=== PATIENT | female | born 1965 | race Caucasian/White ===

== ENCOUNTER → 2016-12-11 | Outpatient (CLI) | payer BC ==
--- NOTE | ~2016-12-11 | MR32 ---
[facility] A Service of [facility] & [facility] RADIOLOGY TEXT RESULTS PATIENT: SKIP WREN LOCATION: [facility] : 65 UNIT #: [id number] AGE: [address]: ROBERTO SAMPSON SEX: F ORDER DR: [id number] [address] [id number] O MR#: [id number] Acc #: [id number] NAME: SKIP WREN : 1965 SEX: F STUDY DATE/TIME: 12/11/2016 12:44 UNIT: [facility] ROOM: STUDY DESCRIPTION: MR Cervical Wo Contrast Attending Physician: Roberto Sampson Aprn Referring Physician: Roberto Sampson Aprn Ordering Physician: Roberto Sampson Aprn Primary Care Physician: Elaine Bailey M.D. MRI CENTER REPORT This report is preliminary unless electronic signature is present. EXAM MRI of the cervical spine without contrast. HISTORY Neck pain for 2 years pain radiates to right side right upper extremity, down right arm. No known trauma. No cancer history. TECHNIQUE MRI of the cervical spine was performed without contrast using routine 1.5T imaging technique. FINDINGS There is mild reversal of cervical lordosis centered at C5-6 with intervertebral disc desiccation most apparent C5-6 and C6-7 where there is moderate loss of intervertebral disc height and endplate spondylosis. Mild marrow endplate degenerative changes noted but otherwise marrow signal intensities unremarkable. Cervical cord is normal in size and signal intensity. There is no Chiari-I malformation. At C2-3, mild facet degenerative change, otherwise, no significant abnormality. C3-4 mild facet degenerative change. No significant abnormality otherwise. At C4-5, mild facet degenerative change bilaterally but no significant canal or foraminal impingement. At C5-6, there is concentric disc osteophyte complex with a superimposed central disc protrusion/extrusion remaining contiguous with the disc extending above and below the level of the disc. This results in mild cord flattening and canal stenosis. There is also mild facet degenerative change bilaterally with uncovertebral osteophyte formation, and there is mild left and moderate right-side foraminal narrowing. [facility] A Service of [facility] & [facility] RADIOLOGY TEXT RESULTS PATIENT: SKIP WREN LOCATION: [facility] : 65 UNIT #: [id number] AGE: [address]: ROBERTO SAMPSON SEX: F ORDER DR: At C6-7, moderate concentric disc osteophyte complex asymmetrically worse right xblesofcor-xb-jeapriqywuixez location. There is zoeb-pi-bgldlorb right-sided cord flattening and canal stenosis and severe impingement upon the right 6-7 foraminal entry zone, to a lesser extent of the foramen itself. There is also leftward uncovertebral osteophyte formation and chjojjks-ld-vsfaea left-sided foraminal impingement. There is mild bilateral facet degenerative change. At C7-T1, mild right, moderate left-side facet degenerative change with moderate left and mild right foraminal narrowing but no canal stenosis. IMPRESSION 1. Multiple level cervical degenerative disc disease with details provided above. There is cord flattening and canal stenosis most prominent at C6-7 and to a lesser extent C5-6. The 6-7 level disc osteophyte complex is more prominent in a right bstpvwrswb-hl-jvpbkvagqusahn location with lrvr-fn-mpocwjhb right-sided cord flattening and canal stenosis and particular impingement upon the right side 6-7 foraminal entry zone. Please correlate for right C7 radicular symptoms. There is multilevel foraminal impingement with details provided above. 2. Cord signal intensity is still normal. Dictated by... Nayeli Ibrahim M.D. THIS IS AN ELECTRONICALLY VERIFIED REPORT Nayeli Ibrahim M.D. at 12/11/2016 11:32 PM RUSS/belia TD: 12/11/2016 19:48 JOB #: [id number] MRI CENTER REPORT Page 1 of 1
== END | disposition home or self-care (01) ==
LOC: SMRI 12:24
DX: M54.2 Cervicalgia (principal); M50.322 Other cervical disc degeneration at C5-C6 level; M48.02 Spinal stenosis, cervical region; M25.78 Osteophyte, vertebrae; M47.892 Other spondylosis, cervical region
CPT/HCPCS: 72141